=== PATIENT | male | born 1970 | race Caucasian/White ===

== ENCOUNTER 2018-04-18 19:52 | Emergency (ER) | payer OTHER ==
[~2018-04-18] VITALS: Ht 177.8 cm; Wt 113.4 kg
[2018-04-18 20:55] LABS: ABSOLUTE EOSINOPHILS 0.1 thou/uL (0.0-0.7); ABSOLUTE LYMPHOCYTES 2.2 thou/uL (0.8-5.3); ABSOLUTE MONOCYTES 0.5 thou/uL (0.0-1.2); ABSOLUTE NEUTROPHILS 4.7 thou/uL (1.6-8.1); BASOPHILS 0.3 %; EOSINOPHILS 1.7 %; HEMATOCRIT 42.4 % (42.0-52.0); HEMOGLOBIN 14.8 gm/dL (14.0-18.0); MCH 33.9 pg (26.0-34.0); MCHC 34.8 g/dL (28.0-37.0); MCV 97.4 fL (80.0-100.0); MONOCYTES 6.6 %; MPV 7.1 fl. (7.2-11.1); NUCLEATED RBCS 0 /100WBC; PLATELET COUNT* 273 thou/uL (150-400); POLYS 62.4 %; RBC 4.36 mil/uL (4.50-6.00); RDW-CV 13.8 % (10.5-14.5); WBC 7.6 thou/uL (4.0-11.0)
[2018-04-18 21:10] LABS: CALCIUM 8.1 mg/dL (8.5-10.1); CREATININE 1.5 mg/dL (0.6-1.3)
[2018-04-18 21:20] LABS: ALBUMIN 3.8 g/dL (3.4-5.0); TOTAL BILIRUBIN 0.3 mg/dL (<0.1-1.0); TOTAL PROTEIN 7.2 g/dL (6.4-8.2)
[2018-04-18 21:30] VITALS: BP 144/82
[2018-04-18] MEDS ORDERED: KEFLEX500 M1 PO (22:08)
--- NOTE | 2018-04-19 10:11 | EKG ---
[place] [address] ELECTROCARDIOGRAM REPORT Name: HAIR SINGH Room: [facility]#: [id number] Admission: 04/18/18 Attend Phys: Discharge: 04/18/18 Date of : 68 Report #: [id number] THIS REPORT FOR: //name// [facility] ED Test Date: 2018-04-18 Test Time: 20:59:07 Pat Name: HAIR SINGH Department: Room: Gender: Senior Qualitative Researcher: EDINSON : 1970 Requested By: Lorin Santoro Order Number: [id number] MD: Hayden Vidales Measurements Intervals [place] Rate: 73 P: 10 SC: 171 QRS: -30 QRSD: 121 T: 58 QT: 405 QTc: 447 Interpretive Statements Sinus rhythm Atrial premature complex RBBB Baseline wander in lead(s) V1 No previous ECG available for comparison Electronically Signed On 04-19-2018 10:10:58 CDT by Hayden Vidales [email or web address] <ELECTRONICALLY SIGNED> By: Hayden Vidales MD, [facility] 04/19/18 1010 [id number] 58 Hayden Vidales MD, [facility] /EPI
== END 2018-04-18 21:25 | disposition home or self-care (01) ==
LOC: M.ERS 19:52
PROVIDERS: Physician Assistant
DX: M54.12 Radiculopathy, cervical region (principal); R59.1 Generalized enlarged lymph nodes; F17.200 Nicotine dependence, unspecified, uncomplicated